=== PATIENT | female | born 1960 | race Caucasian/White ===

== ENCOUNTER 2020-02-12 18:39 | Inpatient (IN) ==
[2020-02-12] MEDS ORDERED: Nitroglycerin 1,000 MCG/10 ML VIAL IV ONE (18:57)
[2020-02-12] MEDS ORDERED: 0.9 % Sodium Chloride 1,000 ML ONE ×2 (18:57→19:52)
[2020-02-12] MEDS ORDERED: *HR* Heparin 10,000 UNIT/10 ML VIAL ONE (18:57)
[2020-02-12] MEDS ORDERED: ISOVUE-370 200 ML INFUS..BTL ONE ×2 (18:57→19:46)
[2020-02-12] MEDS ORDERED: Heparin 1,000 UNITS/500 mL 500 ML ONE (18:57)
[2020-02-12] MEDS ORDERED: *HR* Midazolam HCl 2 MG/2 ML VIAL ONE (19:06)
[2020-02-12] MEDS ORDERED: *HR* FentaNYL (PF) 100 MCG/2 ML VIAL ONE (19:06)
[2020-02-12] MEDS ORDERED: Tirofiban 12.5 MG/250ML 12.5 MG/250 ML BAG ONE (19:06)
[2020-02-12] MEDS ORDERED: *HR* Atropine Sulfate 1 MG/10 ML SYRINGE ONE (19:43)
[2020-02-12] MEDS ORDERED: Perflutren Lipid Microsphere 1.3 ML in 0.9 % Sodium Chloride 8.7 ML IVP PRN (20:02)
[2020-02-12] MEDS ORDERED: Tirofiban 12.5 MG/250ML 12.5 MG/250 ML BAG IVC SCH (20:15)
[2020-02-12] MEDS: 0.9 % Sodium Chloride 1,000 ML IVC SCH (20:51)
[2020-02-12 20:54] LABS: Adenovirus Not Detected (Not Detect); Bordetella Pertussis Not Detected (Not Detect); Chlamydophila pneumoniae Not Detected (Not Detect); Coronavirus 229E Not Detected (Not Detect); Coronavirus HKU1 Not Detected (Not Detect); Coronavirus NL63 Not Detected (Not Detect); Coronavirus OC43 Not Detected (Not Detect); Human Metapneumovirus Not Detected (Not Detect); Human Rhinovirus/Enterovirus Not Detected (Not Detect); Influenza A Subtype 2009 H1 Not Detected (Not Detect); Influenza B Not Detected (Not Detect); Mycoplasma pneumoniae Not Detected (Not Detect); Parainfluenza Virus 1 Not Detected (Not Detect); Parainfluenza Virus 2 Not Detected (Not Detect); Parainfluenza Virus 3 Not Detected (Not Detect); Parainfluenza Virus 4 Not Detected (Not Detect); Respiratory Syncytial Virus Not Detected (Not Detect); SARS-CoV-2 Not Detected (Not Detect)
[2020-02-13 00:12] LABS: Calcium 8.4 mg/dL (8.6-10.3); Potassium 4.1 mEq/L (3.5-5.1)
[2020-02-13] MEDS ORDERED: *HR* Dextrose 50 % in Water (Vial) 50 ML VIAL IVP PRN (04:30)
[2020-02-13] MEDS ORDERED: Dextrose Gel 15 GM/37.5 ML TUBE PO PRN ×2 (04:30)
[2020-02-13] MEDS ORDERED: D5% in Water 1,000 ML IVC PRN (04:30)
[2020-02-13] MEDS ORDERED: Acetaminophen 325 MG TABLET PO PRN (06:16)
[2020-02-13 06:46] LABS: Basophils % 0.4 %; Eosinophils # 0.3 K/mcL (0.0-0.6); Eosinophils % 4.2 %; Hematocrit 34.6 % (35.3-44.9); Hemoglobin 11.2 g/dL (11.5-15.4); Immature Granulocytes % 0.3 % (0-4); Lymphocytes # 1.4 K/mcL (0.6-4.6); Mean Corpuscular HGB Conc 32.4 g/dL (31.6-35.5); Mean Corpuscular Hemoglobin 28.5 pg (28.0-33.3); Mean Platelet Volume 11.5 fL (9.4-12.4); Monocytes # 0.8 K/mcL (0.0-1.3); Monocytes % 9.6 %; Neutrophils # 5.5 K/mcL (1.6-8.9); Platelet Count 187 K/mcL (140-400); Red Blood Count 3.93 M/mcL (3.82-4.97); Red Cell Distribution Width 13.6 % (11.5-14.5); Segmented Neutrophils % 68.5 %
[2020-02-13 07:27] LABS: Calcium 8.7 mg/dL (8.6-10.3); Potassium 4.1 mEq/L (3.5-5.1)
[2020-02-13] MEDS: 0.9 % Sodium Chloride 1,000 ML IVC SCH ×2 (07:50→19:56)
[2020-02-13] MEDS: Insulin LISPRO 300 UNITS/3 ML VIAL SQ SCH ×5 (07:51→20:13)
[2020-02-13 08:05] LABS: Chol/HDL Ratio 5.7 (0-4.9)
[2020-02-13] MEDS: Aspirin Enteric Coated 81 MG Tablet PO SCH (08:13)
[2020-02-13] MEDS: Metoprolol XL (24 HR) Succ 25 MG TAB.ER.24H PO SCH (08:13)
[2020-02-13] MEDS: *HR* Ticagrelor 90 MG TABLET PO SCH ×2 (08:13→20:03)
[2020-02-13 17:08] LABS: Protein/Creatinine Ratio,Urine 0.31 mg/mg (0.00-0.20); Sodium, Urine 92.8 mEq/L
[2020-02-13] MEDS ORDERED: Insulin DETEMIR 100 UNIT/ML X5UNITS SQ SCH (21:00)
[2020-02-14] MEDS: 0.9 % Sodium Chloride 1,000 ML IVC SCH (06:07)
[2020-02-14 06:20] LABS: Basophils % 0.4 %; Eosinophils # 0.2 K/mcL (0.0-0.6); Eosinophils % 3.1 %; Hematocrit 30.1 % (35.3-44.9); Hemoglobin 9.9 g/dL (11.5-15.4); Immature Granulocytes % 0.1 % (0-4); Lymphocytes # 2.1 K/mcL (0.6-4.6); Lymphocytes % 28.7 %; Mean Corpuscular HGB Conc 32.9 g/dL (31.6-35.5); Mean Corpuscular Hemoglobin 28.4 pg (28.0-33.3); Mean Corpuscular Volume 86.2 fL (83.0-100.0); Mean Platelet Volume 11.5 fL (9.4-12.4); Monocytes # 0.6 K/mcL (0.0-1.3); Monocytes % 7.8 %; Neutrophils # 4.3 K/mcL (1.6-8.9); Platelet Count 184 K/mcL (140-400); Red Blood Count 3.49 M/mcL (3.82-4.97); Red Cell Distribution Width 13.6 % (11.5-14.5); Segmented Neutrophils % 59.9 %; White Blood Count 7.2 K/mcL (4.3-11.1)
[2020-02-14 06:40] LABS: BUN/Creatinine Ratio 34 (6-26); Blood Urea Nitrogen 35 mg/dL (6-20); Calcium 8.6 mg/dL (8.6-10.3); Carbon Dioxide 17 mEq/L (23-29); Chloride 114 mEq/L (98-107); Glucose 178 mg/dL (70-105); Magnesium 1.8 mg/dL (1.6-2.6); Osmolality,Calculated 296 (280-300); Phosphorous 2.7 mg/dL (2.7-4.5); Potassium 4.3 mEq/L (3.5-5.1); Sodium 137 mEq/L (136-145); eGFR For African Americans > 60 (> 60); eGFR For Non-African Americans 54 (> 60)
[2020-02-14] MEDS: Insulin LISPRO 300 UNITS/3 ML VIAL SQ SCH ×3 (07:48→16:45)
[2020-02-14] MEDS: Aspirin Enteric Coated 81 MG Tablet PO SCH (07:59)
[2020-02-14] MEDS: *HR* Ticagrelor 90 MG TABLET PO SCH ×2 (07:59→19:23)
[2020-02-14] MEDS: Metoprolol XL (24 HR) Succ 25 MG TAB.ER.24H PO SCH (07:59)
[2020-02-14] MEDS ORDERED: lisinopriL 5 MG TABLET PO SCH (15:00)
[2020-02-14 19:57] VITALS: BP 146/88
== END 2020-02-14 19:35 | disposition home or self-care (01) | DRG 247 ==
LOC: ICNU 19:28
PROVIDERS: ADMIT Internal Medicine Cardiovascular Disease; ATTEND Internal Medicine Cardiovascular Disease

== ENCOUNTER 2022-01-08 12:53 | Inpatient (IN) ==
[2022-01-08] MEDS ORDERED: ceFAZolin 1,000 MG in 0.9 % Sodium Chloride 10 ML IVP ONE (14:16)
[2022-01-08 15:12] LABS: Basophils % 0.5 %; Eosinophils # 0.3 K/mcL (0.0-0.6); Eosinophils % 3.3 %; Hematocrit 36.7 % (35.3-44.9); Immature Granulocytes % 0.3 % (0-4); Lymphocytes # 1.9 K/mcL (0.6-4.6); Mean Corpuscular HGB Conc 32.7 g/dL (31.6-35.5); Mean Corpuscular Hemoglobin 29.3 pg (28.0-33.3); Mean Corpuscular Volume 89.7 fL (83.0-100.0); Mean Platelet Volume 11.4 fL (9.4-12.4); Monocytes # 0.4 K/mcL (0.0-1.3); Monocytes % 5.1 %; Neutrophils # 5.2 K/mcL (1.6-8.9); Platelet Count 208 K/mcL (140-400); Red Blood Count 4.09 M/mcL (3.82-4.97); Red Cell Distribution Width 13.8 % (11.5-14.5); Segmented Neutrophils % 66.8 %; White Blood Count 7.8 K/mcL (4.3-11.1)
[2022-01-08 15:29] LABS: Calcium 9.2 mg/dL (8.6-10.3); Potassium 3.9 mEq/L (3.5-5.1)
[2022-01-08] MEDS ORDERED: Ondansetron 4 MG/2 ML VIAL IVP PRN (16:08)
[2022-01-08] MEDS ORDERED: Naloxone 0.4 MG/ML INJ IVP PRN (16:08)
[2022-01-08] MEDS ORDERED: D5% in Water 1,000 ML IVC PRN (16:39)
[2022-01-08] MEDS ORDERED: *HR* Dextrose 50 % in Water (Syg) 50 ML SYRINGE IVP PRN (16:39)
[2022-01-08] MEDS ORDERED: Dextrose Gel 15 GM/37.5 ML TUBE PO PRN ×2 (16:39)
[2022-01-08] MEDS: Insulin LISPRO 300 UNITS/3 ML VIAL SUBQ SCH (18:16)
[2022-01-08] MEDS ORDERED: Acetaminophen 325 MG TABLET PO PRN (20:28)
[2022-01-08] MEDS ORDERED: Insulin LISPRO 300 UNITS/3 ML VIAL SUBQ SCH (21:00)
[2022-01-08] MEDS: 0.9 % Sodium Chloride 1,000 ML IVC SCH (23:41)
[2022-01-09] MEDS ORDERED: ceFAZolin 1,000 MG in Water for inj. (sterile) 10 ML IVP SCH
[2022-01-09] MEDS: Insulin LISPRO 300 UNITS/3 ML VIAL SUBQ SCH ×4 (00:02→20:34)
[2022-01-09] MEDS: ceFAZolin 2,000 MG in 0.9 % Sodium Chloride 100 ML IVPB SCH ×4 (00:02→23:52)
[2022-01-09] MEDS ORDERED: Famotidine 20 MG/2 ML VIAL IVP ONE (07:21)
[2022-01-09] MEDS ORDERED: Acetaminophen IV 1,000 MG/100 ML BAG IVPB ONE (07:22)
[2022-01-09] MEDS ORDERED: Povidone-Iodine 45 ML, Sodium Chloride IRRigation 1,000 ML IR ONE (07:30)
[2022-01-09] MEDS ORDERED: TOTAL JOINT MIXTURE (100ML) INTRAART ONE (07:30)
[2022-01-09] MEDS ORDERED: Insulin LISPRO 300 UNITS/3 ML VIAL SUBQ SCH ×2 (07:30→21:00)
[2022-01-09] MEDS ORDERED: Ondansetron 4 MG/2 ML VIAL ONE (07:43)
[2022-01-09] MEDS ORDERED: *HR* FentaNYL (PF) 100 MCG/2 ML VIAL ONE (07:43)
[2022-01-09] MEDS ORDERED: *HR* Propofol 200 MG/20 ML VIAL IVP ONE (07:43)
[2022-01-09] MEDS ORDERED: Lidocaine -MPF 2% 5 ML VIAL ONE (07:43)
[2022-01-09] MEDS: 0.9 % Sodium Chloride 1,000 ML IVC SCH (07:47)
[2022-01-09] MEDS ORDERED: Gentamicin 280 MG in 0.9 % Sodium Chloride 100 ML IVPB ONE (07:53)
[2022-01-09] MEDS ORDERED: Ethanol\\Acetic Acid\\Na Ace\\Ben 1,000 ML IRRIG.SOLN IR ONE (08:00)
[2022-01-09] MEDS ORDERED: Vancomycin 1,000 MG VIAL ONE (08:49)
[2022-01-09] MEDS ORDERED: Ondansetron 4 MG/2 ML VIAL IVP PRN ×2 (09:03→13:13)
[2022-01-09] MEDS ORDERED: *HR* HYDROMORPHONE 2 MG/ML VIAL ONE (09:47)
[2022-01-09] MEDS ORDERED: *HR* Metoprolol 5 MG/5 ML VIAL IVP ONE (10:24)
[2022-01-09] MEDS: *HR* HYDROmorphone PF 0.5 MG/0.5 ML SYRINGE IVP PRN ×4 (10:36→11:00)
[2022-01-09] MEDS ORDERED: Ketorolac 30 MG/ML VIAL IVP PRN (11:43)
[2022-01-09] MEDS ORDERED: Acetaminophen 325 MG TABLET PO PRN (11:43)
[2022-01-09] MEDS ORDERED: DULAGLUTIDE 3 MG/0.5 ML SQ SCH (11:43)
[2022-01-09] MEDS ORDERED: Ondansetron ODT 4 MG TAB.RAPDIS PO PRN (11:43)
[2022-01-09] MEDS ORDERED: D5% in Water 1,000 ML IVC PRN (11:47)
[2022-01-09] MEDS ORDERED: *HR* Dextrose 50 % in Water (Syg) 50 ML SYRINGE IVP PRN (11:47)
[2022-01-09] MEDS ORDERED: Dextrose Gel 15 GM/37.5 ML TUBE PO PRN ×2 (11:47)
[2022-01-09] MEDS ORDERED: *HR* Promethazine 25 MG/ML VIAL IM ONE (16:45)
[2022-01-09] MEDS: *HR* OxyCODONE Immed Rel 5 MG TABLET PO PRN (20:33)
[2022-01-09] MEDS: *HR* Ticagrelor 90 MG TABLET PO SCH (20:43)
[2022-01-09] MEDS ORDERED: Vancomycin 1,000 MG VIAL IVPB ONE (22:00)
[2022-01-10 04:53] LABS: Basophils % 0.2 %; Eosinophils % 0.2 %; Hematocrit 32.5 % (35.3-44.9); Immature Granulocytes % 0.4 % (0-4); Lymphocytes # 1.3 K/mcL (0.6-4.6); Lymphocytes % 15.2 %; Mean Corpuscular HGB Conc 31.4 g/dL (31.6-35.5); Mean Corpuscular Hemoglobin 29.2 pg (28.0-33.3); Mean Corpuscular Volume 93.1 fL (83.0-100.0); Mean Platelet Volume 11.4 fL (9.4-12.4); Monocytes # 0.6 K/mcL (0.0-1.3); Monocytes % 7.1 %; Neutrophils # 6.6 K/mcL (1.6-8.9); Platelet Count 187 K/mcL (140-400); Red Blood Count 3.49 M/mcL (3.82-4.97); Segmented Neutrophils % 76.9 %; White Blood Count 8.5 K/mcL (4.3-11.1)
[2022-01-10 04:59] LABS: Hemoglobin 10.2 g/dL (11.5-15.4)
[2022-01-10 05:09] LABS: Calcium 8.1 mg/dL (8.6-10.3)
[2022-01-10] MEDS: Insulin LISPRO 300 UNITS/3 ML VIAL SUBQ SCH (08:00)
[2022-01-10] MEDS: ceFAZolin 2,000 MG in 0.9 % Sodium Chloride 100 ML IVPB SCH (08:40)
[2022-01-10] MEDS: *HR* Ticagrelor 90 MG TABLET PO SCH (08:42)
[2022-01-10] MEDS ORDERED: hydroCHLOROthiazide 25 MG TABLET PO SCH (09:00)
[2022-01-10] MEDS ORDERED: EMPAGLIFLOZIN 10 MG PO SCH (09:00)
[2022-01-10] MEDS ORDERED: NON-FORMULARY MEDICATION 1 EACH EACH (Lisinopril [Lisinopril] 2.5 MG Tablet) PO SCH (09:00)
[2022-01-10] MEDS ORDERED: atenoloL 25 MG TABLET PO SCH (09:00)
[2022-01-10] MEDS ORDERED: Isosorbide MONOnitrate (24 HR) 60 MG TAB.ER.24H PO SCH (09:00)
[2022-01-10] MEDS ORDERED: Isosorbide MONOnitrate (24 HR) 30 MG TAB.ER.24H PO SCH (09:00)
[2022-01-10 11:34] VITALS: BP 106/62; PULSE 80; TEMP 98.2; O2SAT 97
[2022-01-10] MEDS: *HR* OxyCODONE Immed Rel 5 MG TABLET PO PRN (11:50)
== END 2022-01-10 13:33 | disposition home or self-care (01) | DRG 313 ==
LOC: 4WAOSI 12:53 → EMEROOARM 12:53 → SUATTDRO 16:20 → 4WAOSI 16:25
PROVIDERS: ADMIT Internal Medicine; ATTEND Pharmacist